=== PATIENT | male | born 1995 | race Two or more races ===

== ENCOUNTER 2023-02-05 17:12 | Emergency (ER) | payer MEDICAID, OTHER ==
[~2023-02-05] VITALS: Ht 172.7 cm; Wt 77.1 kg
--- NOTE | 2023-02-05 17:41 | NUR ---
PT IS IN ROOM #5B. DR ENCARNACION EVALUATED THE PT.
[2023-02-05] MEDS ORDERED: ACETAMINOPHEN ES 500 MG TABLET PO ONE (17:45)
[2023-02-05] MEDS ORDERED: DEXAMETHASONE SOD PHOSPHATE 4 MG INJ IM ONE (17:45)
[2023-02-05] MEDS ORDERED: IBUPROFEN 600 MG TABLET PO ONE (17:45)
[2023-02-05] MEDS ORDERED: IBUPROFEN 600 MG TABLET ONE (17:49)
[2023-02-05] MEDS ORDERED: ACETAMINOPHEN ES 500 MG TABLET ONE (17:49)
[2023-02-05] MEDS ORDERED: DEXAMETHASONE SOD PHOSPHATE 10 MG INJ ONE (17:50)
[2023-02-05 19:01] VITALS: BP 136/79
--- NOTE | 2023-02-05 19:01 | NUR ---
PT WAS D/C'd TO HOME D/C INSTRUCTIONS GIVEN TO THE PT BY DR ENCARNACION.
== END 2023-02-05 19:03 | disposition home or self-care (01) ==
LOC: ER 17:12
DX: J02.9 Acute pharyngitis, unspecified (principal); B34.9 Viral infection, unspecified; R07.89 Other chest pain; Z20.822 Contact with and (suspected) exposure to COVID-19
CPT/HCPCS: 99284; 71045; 87426; 86403; 96372; J1100; A4663; A9150